=== PATIENT | female | born 1980 | race African-American/Black ===

== ENCOUNTER 2019-12-15 17:46 | Emergency (ER) | payer MEDICAID ==
[~2019-12-15] VITALS: Ht 170.2 cm; Wt 66.7 kg
[2019-12-15] MEDS ORDERED: MAGNESIUM SULFATE/D5W 100 ML IV SCH (18:00)
[2019-12-15] MEDS ORDERED: ALBUTEROL SULFATE 2.5 MG/3 ML NEBU NEB ONE ×2 (18:00)
[2019-12-15] MEDS ORDERED: methylPREDNISolone SOD SUCC 125 MG/2 ML VIAL IV ONE (18:00)
[2019-12-15] MEDS ORDERED: IPRATROPIUM BROMIDE 0.5 MG/2.5 ML NEBU NEB ONE (18:00)
--- NOTE | 2019-12-15 18:02 | NUR ---
PT IS IN ROOM #1B. DR MARES EVALUATEDTHE PT.
[2019-12-15] MEDS ORDERED: ALBUTEROL SULFATE 2.5 MG/3 ML NEBU ONE (18:03)
[2019-12-15] MEDS ORDERED: IPRATROPIUM BROMIDE 0.5 MG/2.5 ML NEBU ONE (18:03)
[2019-12-15] MEDS ORDERED: FLUT1BLS IH (18:10)
[2019-12-15] MEDS ORDERED: methylPREDNISolone SOD SUCC 125 MG/2 ML VIAL ONE (18:11)
[2019-12-15] MEDS ORDERED: MAGNESIUM SULFATE/D5W 100 ML ONE (18:12)
--- NOTE | 2019-12-15 19:41 | NUR ---
Patient discharged to home in stable conditon. Written and verbal after care instructions given. Patient verbalizes understanding of instructions. AMBULATORY W/ STABLE GAIT ALL BELONGINGS W/ PT IV DC, DRESSED
[2019-12-15 19:42] VITALS: BP 122/52
== END 2019-12-15 19:42 | disposition home or self-care (01) ==
LOC: ER 17:46
DX: J45.901 Unspecified asthma with (acute) exacerbation (principal); Z79.899 Other long term (current) drug therapy
CPT/HCPCS: 71045; 93005; 94644; 96365; 96375; 99285; J2930; J3475; A4663; J3590